=== PATIENT | female | born 1990 | race Caucasian/White ===

== ENCOUNTER 2020-02-10 12:31 | Inpatient (IN) | payer OTHER ==
[~2020-02-10] VITALS: Ht 175.3 cm; Wt 84.5 kg
[2020-02-10 12:30] VITALS: BP 112/65
[2020-02-10] MEDS ORDERED: OXYTOCIN 30U/ 0.9% NaCL 500ML 500 ML IV ONE (13:42)
[2020-02-10] MEDS ORDERED: OXYTOCIN 30U/ 0.9% NaCL 500ML 500 ML IV PRN (13:42)
[2020-02-10] MEDS: D5%-LACTATED RINGERS 1,000 ML IV SCH ×2 (13:42→21:42)
[2020-02-10] MEDS ORDERED: TERBUTALINE 1 MG/ML, 1ML SQ PRN (14:00)
[2020-02-10] MEDS ORDERED: CALCIUM CARBONATE 500 MG TAB.CHEW PO PRN (14:00)
[2020-02-10] MEDS ORDERED: FENTANYL PF 100 MCG/2ML IVPush PRN (14:00)
[2020-02-10] MEDS ORDERED: METOCLOPRAMIDE 5 MG/ML, 2ML IVPush PRN (14:00)
[2020-02-10] MEDS ORDERED: SODIUM CHLORIDE FLUSH 10ML SYR IVF PRN (14:00)
[2020-02-10] MEDS ORDERED: ALUMINUM/MAG/SIMETHICONE 30 ML UDC PO PRN (14:00)
[2020-02-10] MEDS ORDERED: ONDANSETRON 2MG/ML, 2ML IVPush PRN (14:00)
[2020-02-10] MEDS ORDERED: TERBUTALINE 1 MG/ML, 1ML IVPush PRN (14:00)
[2020-02-10] MEDS ORDERED: SODIUM CITRATE/CITRIC ACID 30 ML UDC PO PRN (14:00)
[2020-02-10 14:07] LABS: BASOPHILS # (AUTO) 0.03 x10^3/uL (0-0.1); BASOPHILS % (AUTO) 0 % (0-1); EOSINOPHILS # (AUTO) 0.08 x10^3/uL (0-0.4); EOSINOPHILS % (AUTO) 1 % (1-7); LYMPHOCYTES # (AUTO) 1.24 x10^3/uL (1-3.4); LYMPHOCYTES % (AUTO) 11 % (22-44); MD NO; MEAN CORPUSCULAR HEMOGLOBIN 31.8 pg (27.0-34.8); MEAN CORPUSCULAR VOLUME 96.5 fL (80-100); MEAN PLATELET VOLUME 8.4 fL (7.4-10.4); MONOCYTES # (AUTO) 0.47 x10^3/uL (0.2-0.8); MONOCYTES % (AUTO) 4 % (2-9); NEUTROPHILS % (AUTO) 84 % (42-75); PLATELET COUNT 234 x10^3/uL (130-400); RED BLOOD COUNT 4.11 x10^6/uL (3.82-5.3); RED CELL DISTRIBUTION WIDTH 13.2 % (9.6-15.2)
[2020-02-10] MEDS ORDERED: NEWBORN KIT ONE (15:22)
[2020-02-10] MEDS ORDERED: OXYTOCIN 30U/ 0.9% NaCL 500ML 500 ML ONE (15:22)
[2020-02-10] MEDS ORDERED: LIDOCAINE 1%, 20ML ONE (15:22)
[2020-02-10] MEDS ORDERED: MISOPROSTOL 200 MCG TABLET ONE (15:22)
[2020-02-10] MEDS: LACTATED RINGERS 1,000 ML IV SCH (21:42)
[2020-02-11] MEDS: LACTATED RINGERS 1,000 ML IV SCH ×4 (05:42→21:42)
[2020-02-11] MEDS: D5%-LACTATED RINGERS 1,000 ML IV SCH (05:42)
[2020-02-11] MEDS ORDERED: AMPICILLIN 2 GM in SODIUM CHLORIDE 0.9% 100 ML IV SCH (07:30)
[2020-02-11] MEDS: OXYTOCIN 30U/ 0.9% NaCL 500ML 500 ML IV SCH ×2 (08:55→19:11)
[2020-02-11] MEDS ORDERED: METHYLERGONOVINE 0.2 MG/ML IM PRN (09:30)
[2020-02-11] MEDS ORDERED: CARBOPROST TROMETHAMINE 250 MCG/ML, 1ML IM PRN (09:30)
[2020-02-11] MEDS ORDERED: ACETAMINOPHEN 325 MG TABLET PO PRN (09:30)
[2020-02-11] MEDS ORDERED: DOCUSATE 100 MG CAPSULE PO PRN (09:30)
[2020-02-11] MEDS ORDERED: ONDANSETRON 2MG/ML, 2ML IV PRN (09:30)
[2020-02-11] MEDS ORDERED: OXYcodone/APAP 5/325MG TABLET PO PRN (09:30)
[2020-02-11] MEDS ORDERED: MISOPROSTOL 200 MCG TABLET PR PRN (09:30)
[2020-02-11] MEDS ORDERED: OXYcodone IR 5MG TABLET PO PRN (09:30)
[2020-02-11] MEDS ORDERED: METOCLOPRAMIDE 5 MG/ML, 2ML IV PRN (09:30)
[2020-02-11] MEDS ORDERED: SIMETHICONE 80 MG CHEW TAB PO PRN (09:30)
[2020-02-11] MEDS ORDERED: IBUPROFEN 600 MG TABLET ONE (09:31)
[2020-02-11] MEDS: IBUPROFEN 600 MG TABLET PO PRN ×2 (09:34→22:35)
[2020-02-11 11:15] VITALS: BP 104/68
[2020-02-11 16:39] VITALS: BP 106/63
[2020-02-11 17:10] LABS: MEAN CORPUSCULAR HGB CONC 33.7 g/dL (32.4-35.8); PLATELET COUNT 264 x10^3/uL (130-400); RED BLOOD COUNT 3.92 x10^6/uL (3.82-5.3); RED CELL DISTRIBUTION WIDTH 13.3 % (9.6-15.2)
[2020-02-11 17:11] LABS: MEAN PLATELET VOLUME 9.2 fL (7.4-10.4)
[2020-02-11 17:39] LABS: MD YES
[2020-02-11 17:41] LABS: BANDS%(MANUAL) 7 % (0-7); LYMPH#(MANUAL) 0.82 x10^3/uL (1-3.4); LYMPHS% (MANUAL) 3 % (22-44); MONOS#(MANUAL) 0.82 x10^3/uL (0.3-2.7); MONOS% (MANUAL) 3 % (2-9); SEG#(MANUAL) 23.66 x10^3/uL (1.8-6.8); SEGS% (MANUAL) 87 % (42-75)
[2020-02-11 17:42] LABS: <PLATELET ESTIMATE> ADEQUATE; <PLT MORPHOLOGY> NORMAL PLT MORPH; <RBC MORPHOLOGY> NORMAL
[2020-02-11 20:10] VITALS: BP 109/66
[2020-02-11] MEDS ORDERED: RHOGAM FROM BLOOD BANK 1 NOTE EA IM/IV ONE (21:30)
[2020-02-12 00:10] VITALS: BP 103/68
[2020-02-12 03:50] VITALS: BP 108/69
[2020-02-12] MEDS: OXYTOCIN 30U/ 0.9% NaCL 500ML 500 ML IV SCH (05:11)
[2020-02-12] MEDS: LACTATED RINGERS 1,000 ML IV SCH (05:42)
[2020-02-12] MEDS ORDERED: PRENATAL VIT/IRON/FA 1 EACH TABLET PO SCH (09:00)
[2020-02-12] MEDS ORDERED: IBUP-1222 PO (09:34)
== END 2020-02-12 14:12 | disposition home or self-care (01) | DRG 807 ==
LOC: LDOP 12:31 → LDIP 13:16 → 2NW 02-11 11:08
PROVIDERS: ADMIT Obstetrics & Gynecology; ATTEND Obstetrics & Gynecology
PROC: 0HQ9XZZ Repair Perineum Skin, External Approach (ICD-10-PCS; principal; 2020-02-11)
PROC: 10E0XZZ Delivery of Products of Conception, External Approach (ICD-10-PCS; 2020-02-11)
DX: O69.81X0 Labor and delivery complicated by cord around neck, without compression, not applicable or unspecified (principal); Z37.0 Single live birth; Z3A.38 38 weeks gestation of pregnancy; Z67.91 Unspecified blood type, Rh negative; O70.0 First degree perineal laceration during delivery; O26.893 Other specified pregnancy related conditions, third trimester
CPT/HCPCS: 36415; J7121; 84112; 85025; 85461; 86592; 86850; 86870; 86900; 86922; 86923; 87635; G0378; J0290; J2790; J2590; J7120